=== PATIENT | female | born 1960 | race Caucasian/White ===

== ENCOUNTER 2017-09-12 13:28 | Emergency (ER) | payer OTHER ==
[~2017-09-12] VITALS: Ht 160 cm; Wt 72.6 kg
--- NOTE | 2017-09-12 13:30 | NUR ---
BIB C/O DIZZINESS AND R EAR CLOGGED X 4 DAYS. VSS
[2017-09-12] MEDS ORDERED: MECLIZINE HCL 25 MG TABLET PO ONE (14:30)
[2017-09-12] MEDS ORDERED: MECLIZINE HCL 25 MG TABLET ONE (14:30)
[2017-09-12 15:13] VITALS: BP 155/80
--- NOTE | 2017-09-12 15:14 | NUR ---
Patient discharged to home in stable condition. Written and verbal after care instructions given. Patient verbalizes understanding of instruction.
== END 2017-09-12 15:19 | disposition home or self-care (01) ==
LOC: ER 13:35
DX: H61.23 Impacted cerumen, bilateral (principal); R42 Dizziness and giddiness; I10 Essential (primary) hypertension; B19.20 Unspecified viral hepatitis C without hepatic coma; Z91.011 Allergy to milk products
CPT/HCPCS: 99283; A4606; A6402; A6403; J8597; Z7610

== ENCOUNTER 2017-09-19 14:03 | Emergency (ER) | payer OTHER ==
[~2017-09-19] VITALS: Ht 162.6 cm; Wt 72.6 kg
[2017-09-19 15:11] VITALS: BP 159/84
== END 2017-09-19 15:28 | disposition home or self-care (01) ==
LOC: ER 14:06
DX: F41.9 Anxiety disorder, unspecified (principal); I10 Essential (primary) hypertension; B19.20 Unspecified viral hepatitis C without hepatic coma; D21.9 Benign neoplasm of connective and other soft tissue, unspecified; Z91.011 Allergy to milk products
CPT/HCPCS: 99284; A4606; Z7610

== ENCOUNTER 2017-12-12 12:02 | Emergency (ER) | payer OTHER ==
[~2017-12-12] VITALS: Ht 162.6 cm; Wt 72.6 kg
--- NOTE | 2017-12-12 12:10 | NUR ---
PT CAME IN WITH C/O FLU-LIKE SYMPTOMS COUGH, NASAL CONGESTION, FEVER X 2-WEEKS. SEEN BY MD FOR EVAL. VSS. SAFETY AND COMFORT MEASURES PROVIDED. WILL MONITOR.
--- NOTE | 2017-12-12 12:20 | NUR ---
IV ACCESS STARTED. BLOOD DRAWN FOR LABS. MEDICATED ORDERED.
[2017-12-12] MEDS ORDERED: IV NS 0.9% 1,000 ML BAG IV ONE (12:30)
[2017-12-12 12:36] LABS: BASOPHILS % (AUTO) 0.2 % (0.0-2.0); EOSINOPHILS % (AUTO) 0.2 % (0.0-6.0); HEMATOCRIT 41 % (33-45); LYMPHOCYTES # (AUTO) 1.2 /CMM (0.8-4.8); LYMPHOCYTES % (AUTO) 16.5 % (20.0-44.0); MEAN CORPUSCULAR HEMOGLOBIN 29 PG (26.0-33.0); MEAN CORPUSCULAR HGB CONC 35 g/dl (31.0-36.0); MEAN CORPUSCULAR VOLUME 84 fL (82-100); MONOCYTES # (AUTO) 0.4 /CMM (0.1-1.30); MONOCYTES % (AUTO) 5.1 % (2.0-12.0); NEUTROPHILS # (AUTO) 5.7 /CMM (1.8-8.9); PLATELET COUNT (AUTO) 192 /CMM (150-450); RDW COEFFICIENT OF VARIATION 11.4 (11.5-15.0); RED BLOOD CELL COUNT(AUTO) 4.83 MIL/uL (4.0-5.2); WHITE BLOOD COUNT (AUTO) 7.3 K/uL (4.3-11.0)
[2017-12-12 12:46] LABS: CALCIUM, SERUM 8.9 mg/dL (8.5-10.1); CREATININE 1.1 mg/dL (0.6-1.3); POTASSIUM 3.4 mmol/L (3.5-5.1)
[2017-12-12 12:58] LABS: ALBUMIN 3.6 g/dL (3.4-5.0); BILIRUBIN,DIRECT 0.1 mg/dL (0.0-0.2); BILIRUBIN,TOTAL 0.4 mg/dL (0.2-1.0); TOTAL PROTEIN, SERUM 8.3 g/dL (6.4-8.2)
[2017-12-12 13:22] VITALS: BP 135/77
--- NOTE | 2017-12-12 13:22 | NUR ---
IV removed. Catheter intact and site benign. Pressure and 4x4 applied to site. No bleeding noted.
--- NOTE | 2017-12-12 13:22 | NUR ---
Patient discharged to home in stable condition. Written and verbal after care instructions given. Patient verbalizes understanding of instruction.
[2017-12-12] MEDS ORDERED: DEXAMETHASONE SOD PHOSPHATE 10 MG/ML VIAL IV ONE (13:30)
== END 2017-12-12 13:29 | disposition home or self-care (01) ==
LOC: ER 12:05
DX: J20.9 Acute bronchitis, unspecified (principal); B19.20 Unspecified viral hepatitis C without hepatic coma; I10 Essential (primary) hypertension; Z91.018 Allergy to other foods; Z85.9 Personal history of malignant neoplasm, unspecified
CPT/HCPCS: 36415; 71045; 80048; 80076; 85025; 87040 ×2; 96360; 99285; A4606; Z7610